=== PATIENT | male | born 1950 | race Caucasian/White ===

== ENCOUNTER 2017-09-17 08:02 | Day surgery (SDC) | payer MEDICARE, BC ==
[~2017-09-17 08:02] MED LIST: RINGER'S SOLUTION,LACTATED 1,000 ML IV PRN
[2017-09-17] MEDS ORDERED: RINGER'S SOLUTION,LACTATED 1,000 ML IV ONE (12:13)
[2017-09-17 14:15] VITALS: BP 139/90
--- NOTE | 2017-09-17 16:31 | OR ---
Operative Report - Dictated Report Narrative: Date: 09/17/2017 Preoperative diagnosis: Positive cologuard test, screening for colon cancer Postoperative diagnosis: Pedunculated polyp at 50 cm Procedure: Total colonoscopy with snare polypectomy at 50 cm, inject endoscopy dye at 50 cm Staff surgeon: Howard Rees MD Anesthesia: MAC per [employer] EBL: Minimal Specimens: Polyp at 50 cm Description of procedure: After informed consent and appropriate sedation the patient was placed in the left lateral decubitus position. A flexible fiberoptic video colonoscope was introduced and advanced under direct vision without difficulty to the cecum. The usual landmarks were identified. Preparation was fair but good views were obtained. The findings were a normal cecum, ascending colon, hepatic flexure, transverse colon, splenic flexure, descending colon, a pedunculated polyp was encountered at 50 cm and endoscopy dye was injected adjacent to this in a submucosal position. The polyp was then excised with the snare at its base and the polyp was removed by suction into a polyp trap. Several excursions above and below the polypectomy site were performed to ensure that the polyp had been adequately biopsied by suction. The biopsy site appeared to be hemostatic. The remainder of the sigmoid colon, rectum, and retroflexed view were normal. The mucosal collar, vasculature, and texture were normal throughout. No suspicious masses were seen. The patient tolerated the procedure well without apparent complications and was discharged from the endoscopy suite in stable condition.
== END 2017-09-17 08:03 | disposition home or self-care (01) ==
LOC: AMB 08:02
PROVIDERS: ATTEND Specialist
PROC: 0DBN8ZX Excision of Sigmoid Colon, Via Natural or Artificial Opening Endoscopic, Diagnostic (ICD-10-PCS; principal; 2017-09-17)
PROC: 3E0H8GC Introduction of Other Therapeutic Substance into Lower GI, Via Natural or Artificial Opening Endoscopic (ICD-10-PCS; 2017-09-17)
DX: Z12.11 Encounter for screening for malignant neoplasm of colon (principal); K51.40 Inflammatory polyps of colon without complications; N40.0 Benign prostatic hyperplasia without lower urinary tract symptoms; M13.80 Other specified arthritis, unspecified site; G60.0 Hereditary motor and sensory neuropathy; Z68.25 Body mass index [BMI] 25.0-25.9, adult